=== PATIENT | male | born 1980 | race Caucasian/White ===

== ENCOUNTER 2017-08-08 21:52 | Emergency (ER) | payer OTHER ==
[2017-08-08 21:58] VITALS: RESP 15; TEMP 98.2; O2SAT 95
--- NOTE | 2017-08-08 23:27 | EDPHY ---
General Time Seen by Provider: 08/08/17 22:23 Narrative: CHIEF COMPLAINT: Thumb laceration HISTORY OF PRESENT ILLNESS: Patient complains of right thumb laceration. This happened less than 1 hr ago. He was doing dishes in his kitchen when he dropped a plate and lacerated his right thumb. This did not shatter. Broken to 2 large pieces. He has minimal pain. The bleeding has stopped with simple pressure. Difficulty moving the finger in a direction. No numbness, tingling or weakness. Pain is minimally worse with palpation and movement. No injury elsewhere. Tetanus up-to-date. No other associated complaints or modifying factors. TIME OF INJURY: Less than 1 hr prior to arrival TETANUS STATUS: Less than 3 years ago MEDICAL/SURGICAL/SOCIAL HISTORY: Uncomplicated medical history. Nonsmoker. Works and lives here locally. REVIEW OF SYSTEMS: Ten systems reviewed and are negative unless otherwise noted in the HPI EXAMINATION General Appearance: Alert, no distress Head: normocephalic, atraumatic Cardiovascular: Symmetric radial pulses. Brisk cap refill in the affected finger. Neurological: A&O, 2 point sensation intact symmetrically in the thumbs. Interossei strength symmetric. Opposition strength symmetric. Skin: Warm and dry, no rash. 2 cm laceration to the right thumb over the anterior-radial side. No bleeding. No foreign body. No cyanosis or pallor. Extremities: Tenderness over the area laceration. Full flexion extension. Full abduction and adduction of the thumb. Symmetric opposition of the thumb. Symmetric strength in the thumb. DIFFERENTIAL DIAGNOSES: Including but not limited to simple laceration, complex laceration, laceration with tendon injury, laceration with foreign body MDM: 10:30 p.m. Superficial laceration to the right thumb over the radial aspect. There is no foreign body. There is no obvious injury to underlying tendon. He is fully intact with flexion, extension, abduction, adduction and opposition of the thumb with excellent strength. He sensory intact. His tetanus is up-to-date. There is no bleeding. I have anesthetize the wound. It is currently being irrigated by weed science research technician. I will suture repair. He does not have any indication for x-ray at this time. his pain is minimal. 11:20 p.m.. Simple laceration of the right thumb that has been closed without difficulty. Excellent approximation. No tendon injury. No foreign body. Wound care discussed. Return here in 10 days for suture removal. Return sooner for signs of infection. 48 hr dressing applied. Patient is comfortable this plan and discharged home stable condition. PROCEDURE: Laceration repair Consent: Verbal Location: Right thumb Length of repair: 2 cm Complexity: Simple Layer involvement: Single Anesthesia: Local. 1% lidocaine plain. 5 mL Irrigation: Extensive Debridement: None Procedure description: Following good anesthesia, the wound was copiously irrigated. Wound bed was explored with a sterile glove, and there is no foreign body noted. No injury to the underlying tendon. Wound borders were approximated well with good hemostasis. Tolerated well without complication. Suture/Staple material: 5-0 Ethilon, 3 simple ruptured sutures Wound care: Routine as discussed Suture/Staple removal: 7-10 Days SUPERVISION: This patient was independently evaluated without direct involvement of or examination by the attending physician. ED Precautions: Worsening pain. Erythema, edema, cyanosis, pallor, paresthesia or anesthesia. - History Smoking Status: Never smoked - Objective Vital Signs: Initial Vital Signs Temperature (C) 98.2 F 08/08/17 21:54 Heart Rate 62 08/08/17 21:54 Respiratory Rate 15 08/08/17 21:54 Blood Pressure 123/70 H 08/08/17 21:54 O2 Sat (%) 95 08/08/17 21:54 O2 Delivery Mode Room Air Allergies/Adverse Reactions: No Known Allergies Allergy (Unverified 08/08/17 21:58) Home Medications: Medication Instructions Recorded NK [No Known Home Meds] 08/08/17 Departure - Departure Disposition: Home, Routine, Self-Care Clinical Impression: Laceration of thumb without damage to nail Qualifiers: Encounter type: initial encounter Foreign body presence: without foreign body Laterality: right Qualified Code(s): S61.011A - Laceration without foreign body of right thumb without damage to nail, initial encounter Condition: Good Instructions: Care For Your Stitches (ED), Laceration (ED) Additional Instructions: 1. Daily wound care as discussed 2. You have a [address] Do not submerge this under water 3. Daily wound changes after 48 hr with thin layer bacitracin. 4. No hot to the swimming pools until sutures are removed 5. ED precautions for signs of infection as discussed 6. Return to this emergency department in 7-10 days for suture removal. No appointment needed Referrals: Leander Ward [Primary Care Provider] - As per Instructions
[2017-08-08 23:33] VITALS: BP 120/70; PULSE 70
== END 2017-08-08 23:33 | disposition home or self-care (01) ==
PROC: 0HQFXZZ Repair Right Hand Skin, External Approach (ICD-10-PCS; principal; 2017-08-08)
DX: S61.011A Laceration without foreign body of right thumb without damage to nail, initial encounter (principal); W26.8XXA Contact with other sharp object(s), not elsewhere classified, initial encounter; Y92.000 Kitchen of unspecified non-institutional (private) residence as the place of occurrence of the external cause; Y99.8 Other external cause status; Y93.G3 Activity, cooking and baking